=== PATIENT | female | born 1945 | race Caucasian/White ===

== ENCOUNTER 2016-10-05 14:14 | Outpatient (RCR) | payer MEDICARE, OTHER ==
[~2016-10-05 14:14] MED LIST: ALB0.5V INH; AMLO10TA PO; ASPI-587 PO; BPR150TCR PO; BUPR150T14 PO; BUSP10TA95 PO; CALC-656 PO; CLNZ.5T PO; CYCL10TA45 PO; D50KC PO; DOCU-161 PO; FL025NA25 NSEACH; FLUT1DIS26 IH; FURO40TA4 PO; KETO10DR5 OP; LORA10TA7 PO; LOSA100T7 PO; METO25TA6 PO; NABU500T PO; NABU750T PO; NICO1PAT16 TOP; NYST1000 PO; POTA20TA15 PO; ROSU20TA14 PO; TIOT18CA IH
[2016-10-05 14:15] LABS: BASOPHILS # (AUTO) 0.1 10^3/uL (0.0-0.1); BASOPHILS % (AUTO) 1 % (0-10); EOSINOPHILS # (AUTO) 0.3 10^3/uL (0.0-0.3); EOSINOPHILS % (AUTO) 4 % (0-10); LYMPHOCYTES # (AUTO) 2.8 X 10^3 (1.0-4.0); LYMPHOCYTES % (AUTO) 36 % (12-44); MEAN CORPUSCULAR HEMOGLOBIN 27 PG (25-34); MEAN CORPUSCULAR HGB CONC 32 G/DL (32-36); MEAN CORPUSCULAR VOLUME 83 FL (80-99); MEAN PLATELET VOLUME 10.2 FL (7.4-10.4); MONOCYTES # (AUTO) 0.8 X 10^3 (0.0-1.0); MONOCYTES % (AUTO) 11 % (0-12); NEUTROPHILS # (AUTO) 3.9 X 10^3 (1.8-7.8); NEUTROPHILS % (AUTO) 49 % (42-75); PLATELET COUNT 164 10^3/uL (130-400); RED BLOOD COUNT 5.57 10^6/uL (4.35-5.85); RED CELL DISTRIBUTION WIDTH 14.7 % (10.0-14.5); WHITE BLOOD COUNT 7.8 10^3/uL (4.3-11.0)
[2016-10-05 14:49] LABS: ALANINE AMINOTRANSFERASE 28 U/L (0-55); ALBUMIN 4.3 G/DL (3.2-4.5); ANION GAP 7 MMOL/L (5-14); ASPARTATE AMINO TRANSFERASE 20 U/L (5-34); BILIRUBIN,TOTAL 0.5 MG/DL (0.1-1.0); BLOOD UREA NITROGEN 10 MG/DL (7-18); BUN/CREATININE RATIO 12; CALCIUM 10.9 MG/DL (8.5-10.1); CARBON DIOXIDE 29 MMOL/L (21-32); CHLORIDE 104 MMOL/L (98-107); CREATININE SERUM 0.85 MG/DL (0.60-1.30); GFR ESTIMATED > 60; GLUCOSE 95 MG/DL (70-105); POTASSIUM 4.6 MMOL/L (3.6-5.0); SODIUM 140 MMOL/L (135-145); TOTAL PROTEIN 6.7 G/DL (6.4-8.2)
== END 2017-01-03 | disposition home or self-care (01) ==
LOC: ONC 14:14
PROVIDERS: ATTEND Internal Medicine Hematology & Oncology
DX: C34.12 Malignant neoplasm of upper lobe, left bronchus or lung (principal); J44.9 Chronic obstructive pulmonary disease, unspecified; M15.0 Primary generalized (osteo)arthritis; R71.8 Other abnormality of red blood cells; F32.9 Major depressive disorder, single episode, unspecified; F41.9 Anxiety disorder, unspecified; F17.210 Nicotine dependence, cigarettes, uncomplicated; J90 Pleural effusion, not elsewhere classified; E83.52 Hypercalcemia; Z79.899 Other long term (current) drug therapy
CPT/HCPCS: 36415; 80053; 85025; 99213

== ENCOUNTER → 2019-04-08 | Outpatient (CLI) | payer MEDICARE, OTHER ==
[2019-04-08 15:18] LABS: ABG BASE EXCESS 4.9 MMOL/L (-2.5-2.5); ABG OXYGEN SATURATION 92 % (94-100); ABG PCO2 43 MMHG (35-45); ABG PH 7.44 (7.37-7.43); ABG PO2 56 MMHG (79-93); ABG TCO2 30.3 MMOL/L (21.0-31.0)
[2019-04-08 15:20] LABS: ALLENS TEST YES-POS; INSPIRED O2 ROOM AIR; PATIENT TEMP 98.2; VENTILATOR NO
== END ==
LOC: RT 14:32
PROVIDERS: ATTEND Nurse Practitioner Family
DX: J44.9 Chronic obstructive pulmonary disease, unspecified (principal); R91.8 Other nonspecific abnormal finding of lung field; R06.00 Dyspnea, unspecified; F17.200 Nicotine dependence, unspecified, uncomplicated
CPT/HCPCS: 36600; 82805

== ENCOUNTER → 2019-04-08 | Outpatient (CLI) | payer MEDICARE, OTHER ==
[~2019-04-08] MED LIST changes: +HOLD METFORMIN - RECEIVED CONTRAST 20 ML VIAL IV SCH; +IOHEXOL 350 MG/ML 100 ML (OMNIPAQUE 350) VIAL IV ONE; +NS 100 ML (IVPB) BAG IV ONE
--- NOTE | 2019-04-08 14:52 | Diagnostic Imaging Report ---
PROCEDURE: CT chest with and without contrast. TECHNIQUE: Multiple contiguous axial images were obtained through the chest before and after administration of intravenous contrast. Auto Exposure Controls were utilized during the CT exam to meet ALARA standards for radiation dose reduction. INDICATION: Lung carcinoma and left upper lobe density. COMPARISON: Correlation is made with prior CT chest from 09/15/2016. FINDINGS: No axillary lymphadenopathy is detected. No definite hilar or mediastinal lymphadenopathy is identified. No pericardial or pleural fluid is identified. Postop changes of left upper lobectomy are seen with volume loss in the left hemithorax. There are some centrilobular emphysematous changes in both lungs. Small nodule in the superior segment right lower lobe is stable at approximately 6 mm, image 29. Previously noted 9 mm density in the right lower lobe below the level of the hilum is not appreciated on today's exam. Multiple small nonspecific densities in the posterior left lower lobe appear stable. Subpleural density laterally in the left lower lobe is also stable. There is some scarring in the medial aspect of the right lower lobe. Upper abdomen again demonstrates fat-containing left adrenal mass. IMPRESSION: Overall stable CT chest when compared with exam from 09/15/2016. Bilateral subcentimeter nodules are stable. No thoracic lymphadenopathy is detected. Dictated by: Dictated on workstation # [id number]
== END ==
LOC: RAD 12:23
PROVIDERS: ATTEND Family Medicine
DX: C34.90 Malignant neoplasm of unspecified part of unspecified bronchus or lung (principal); J44.9 Chronic obstructive pulmonary disease, unspecified; Z90.2 Acquired absence of lung [part of]
CPT/HCPCS: 71270

== ENCOUNTER → 2019-11-26 | Outpatient (CLI) | payer MEDICARE ==
[~2019-11-26] MED LIST changes: -HOLD METFORMIN - RECEIVED CONTRAST 20 ML VIAL IV SCH; -IOHEXOL 350 MG/ML 100 ML (OMNIPAQUE 350) VIAL IV ONE; -NS 100 ML (IVPB) BAG IV ONE
[2019-11-26 15:57] LABS: BASOPHILS % (AUTO) 0 % (0-10); EOSINOPHILS # (AUTO) 0.2 10^3/uL (0.0-0.3); EOSINOPHILS % (AUTO) 2 % (0-10); HEMATOCRIT 45 % (35-52); HEMOGLOBIN 14.5 G/DL (11.5-16.0); LYMPHOCYTES # (AUTO) 2.5 X 10^3 (1.0-4.0); LYMPHOCYTES % (AUTO) 29 % (12-44); MEAN CORPUSCULAR HEMOGLOBIN 27 PG (25-34); MEAN CORPUSCULAR HGB CONC 32 G/DL (32-36); MEAN CORPUSCULAR VOLUME 83 FL (80-99); MEAN PLATELET VOLUME 10.7 FL (7.4-10.4); MONOCYTES # (AUTO) 0.6 X 10^3 (0.0-1.0); MONOCYTES % (AUTO) 7 % (0-12); NEUTROPHILS # (AUTO) 5.5 X 10^3 (1.8-7.8); NEUTROPHILS % (AUTO) 62 % (42-75); PLATELET COUNT 270 10^3/uL (130-400); RED CELL DISTRIBUTION WIDTH 14.6 % (10.0-14.5); WHITE BLOOD COUNT 8.8 10^3/uL (4.3-11.0)
[2019-11-26 16:12] LABS: BUN/CREATININE RATIO 15; CALCIUM 11.1 MG/DL (8.5-10.1); CARBON DIOXIDE 26 MMOL/L (21-32); CHLORIDE 103 MMOL/L (98-107); CREATININE SERUM 0.87 MG/DL (0.60-1.30); GFR ESTIMATED > 60; GLUCOSE 99 MG/DL (70-105); POTASSIUM 4.6 MMOL/L (3.6-5.0); SODIUM 139 MMOL/L (135-145)
[2019-11-26 16:39] LABS: ABG BASE EXCESS 3.4 MMOL/L (-2.5-2.5); ABG OXYGEN SATURATION 93 % (94-100); ABG PCO2 38 MMHG (35-45); ABG PH 7.47 (7.37-7.43); ABG PO2 62 MMHG (79-93); ABG TCO2 28.3 MMOL/L (21.0-31.0); ALLENS TEST POSITIVE; PATIENT TEMP 36.5; VENTILATOR NO
--- NOTE | 2019-11-26 16:55 | Diagnostic Imaging Report ---
INDICATION: Lung mass. EXAMINATION: PA and lateral chest. FINDINGS: There are emphysematous changes in the lungs. There are no infiltrates, effusions, or pneumothoraces. IMPRESSION: COPD. No acute abnormality is seen. Dictated by: Dictated on workstation # [id number]
== END ==
LOC: PULM 15:35
PROVIDERS: ATTEND Internal Medicine Critical Care Medicine
DX: J43.8 Other emphysema (principal); R09.02 Hypoxemia; R91.8 Other nonspecific abnormal finding of lung field; F17.200 Nicotine dependence, unspecified, uncomplicated
CPT/HCPCS: 36415; 71046; 80048; 82805; 83880; 85025

== ENCOUNTER → 2019-12-24 | Outpatient (CLI) | payer MEDICARE ==
--- NOTE | 2019-12-24 14:07 | Diagnostic Imaging Report ---
PROCEDURE: CT chest without contrast. TECHNIQUE: Multiple contiguous axial images were obtained through the chest without the use of intravenous contrast. Auto Exposure Controls were utilized during the CT exam to meet ALARA standards for radiation dose reduction. INDICATION: Nicotine dependence, hypoxia and lung mass with dyspnea and COPD. COMPARISON: Comparison is made with prior examination of 04/08/2019. FINDINGS: There is an unchanged 6 mm nodule in the right lung base. There is also an unchanged somewhat more spiculated density in the left lung base measuring 8 mm. No new pulmonary nodules, masses, or infiltrates are appreciated. There is no pleural or pericardial fluid. There is some atherosclerotic calcification of the aorta which is nonaneurysmal. There are coronary artery calcifications. Heart size is normal. There is no pathologically enlarged adenopathy in the chest. There is no pneumothorax. There is a fat-containing left adrenal mass. Tissue abnormalities. There are degenerative changes in the spine. IMPRESSION: Unchanged bilateral lower lobe pulmonary nodules as well as COPD. Coronary artery calcification. No other acute abnormality in the chest. Dictated by: Dictated on workstation # [id number]
== END ==
LOC: RAD 12:30
PROVIDERS: ATTEND Nurse Practitioner Family
DX: J43.8 Other emphysema (principal); J98.4 Other disorders of lung; R09.02 Hypoxemia; R91.8 Other nonspecific abnormal finding of lung field; I25.10 Atherosclerotic heart disease of native coronary artery without angina pectoris; F17.200 Nicotine dependence, unspecified, uncomplicated
CPT/HCPCS: 71250